=== PATIENT | female | born 1960 | race Caucasian/White ===

== ENCOUNTER 2020-06-28 14:29 | Inpatient (IN) ==
[2020-06-28] MEDS ORDERED: CeFAZolin Syr 2,000MG/20 ML 2,000 MG/20 ML SYRINGE IVPB ONE (15:04)
[2020-06-28] MEDS ORDERED: Ringers Solution, Lactated 1,000 ML IVC SCH (15:15)
[2020-06-28] MEDS ORDERED: *HR* Propofol 200 MG/20 ML VIAL IVP ONE (16:43)
[2020-06-28] MEDS ORDERED: *HR* Rocuronium Bromide 50 MG/5 ML VIAL ONE (16:44)
[2020-06-28] MEDS ORDERED: *HR* Midazolam HCl 2 MG/2 ML VIAL ONE (16:44)
[2020-06-28] MEDS ORDERED: *HR* FentaNYL (PF) 100 MCG/2 ML VIAL ONE (16:44)
[2020-06-28] MEDS ORDERED: Lidocaine -MPF 2% 2 ML VIAL ONE ×2 (16:44→16:51)
[2020-06-28] MEDS ORDERED: Famotidine 20 MG/2 ML VIAL IVP ONE (16:49)
[2020-06-28] MEDS ORDERED: Acetaminophen IV 1,000 MG/100 ML BAG IVPB ONE (16:49)
[2020-06-28] MEDS ORDERED: Gabapentin 300 MG CAPSULE PO ONE (16:49)
[2020-06-28] MEDS ORDERED: Ondansetron 4 MG/2 ML VIAL IVP PRN ×2 (16:55→20:06)
[2020-06-28] MEDS ORDERED: *HR* HYDROmorphone PF 0.5 MG/0.5 ML SYRINGE IVP PRN (16:55)
[2020-06-28] MEDS ORDERED: Ondansetron 4 MG/2 ML VIAL ONE (17:58)
[2020-06-28] MEDS ORDERED: Dexamethasone 4 MG/ML VIAL ONE (17:58)
[2020-06-28] MEDS ORDERED: *HR* PHENYLEPHRINE 1,000 MCG/10 ML SYRINGE IVP ONE (18:11)
[2020-06-28] MEDS ORDERED: Sugammadex Sodium 200 MG/2 ML VIAL IV ONE (18:24)
[2020-06-28] MEDS ORDERED: *HR* Nalbuphine 10 MG/ML AMPUL ONE (18:33)
[2020-06-28] MEDS ORDERED: *HR* Labetalol 20 MG/4 ML SYRINGE IVP ONE (19:04)
[2020-06-28] MEDS: *HR* Labetalol 20 MG/4 ML SYRINGE IVP PRN ×2 (19:05→19:20)
[2020-06-28] MEDS ORDERED: Naloxone 0.4 MG/ML INJ IVP PRN (20:06)
[2020-06-28] MEDS: Gabapentin 300 MG CAPSULE PO SCH (20:26)
[2020-06-28] MEDS: Sennosides/Docusate Sodium TABLET PO SCH (20:26)
[2020-06-28] MEDS: *HR* Heparin 5,000 UNIT/ML VIAL SQ SCH (20:26)
[2020-06-28] MEDS: *HR* HYDROcodone/Acet 5/325 mg TABLET PO PRN (20:26)
[2020-06-28] MEDS: 0.9 % Sodium Chloride 1,000 ML IVC SCH (20:26)
[2020-06-28] MEDS: Famotidine 20 MG TABLET PO SCH (20:26)
[2020-06-28] MEDS: Ketorolac 15 MG/ML VIAL IVP SCH (23:52)
[2020-06-28] MEDS: Ipratropium/Albuterol Neb 3 ML IH SCH (23:53)
[2020-06-29] MEDS: Ipratropium/Albuterol Neb 3 ML IH SCH ×7 (00:01→23:36)
[2020-06-29] MEDS: *HR* HYDROcodone/Acet 5/325 mg TABLET PO PRN ×4 (03:30→20:03)
[2020-06-29 04:46] LABS: Hemoglobin 13.3 g/dL (11.5-15.4); Mean Corpuscular HGB Conc 32.4 g/dL (31.6-35.5); Mean Corpuscular Hemoglobin 31.1 pg (28.0-33.3); Mean Platelet Volume 11.1 fL (9.4-12.4); Platelet Count 160 K/mcL (140-400); Red Blood Count 4.27 M/mcL (3.82-4.97); Red Cell Distribution Width 11.6 % (11.5-14.5); White Blood Count 9.8 K/mcL (4.3-11.1)
[2020-06-29 05:08] LABS: % Iron Saturation 11 % (15-50); BUN/Creatinine Ratio 16 (6-26); Blood Urea Nitrogen 12 mg/dL (6-20); Calcium 8.5 mg/dL (8.6-10.3); Carbon Dioxide 29 mEq/L (23-29); Chloride 104 mEq/L (98-107); Glucose 149 mg/dL (70-105); Iron 32 mcg/dL (50-170); Magnesium 1.7 mg/dL (1.6-2.6); Osmolality,Calculated 289 (280-300); Sodium 138 mEq/L (136-145); Transferrin 211 mg/dL (203-362); eGFR For African Americans > 60 (> 60); eGFR For Non-African Americans > 60 (> 60)
[2020-06-29] MEDS: *HR* Heparin 5,000 UNIT/ML VIAL SQ SCH ×3 (05:41→20:03)
[2020-06-29] MEDS: Ketorolac 15 MG/ML VIAL IVP SCH ×4 (05:42→23:15)
[2020-06-29] MEDS: Sennosides/Docusate Sodium TABLET PO SCH ×2 (08:17→20:03)
[2020-06-29] MEDS: Gabapentin 300 MG CAPSULE PO SCH ×3 (08:17→20:03)
[2020-06-29] MEDS: 0.9 % Sodium Chloride 1,000 ML IVC SCH (08:17)
[2020-06-29] MEDS: Famotidine 20 MG TABLET PO SCH ×2 (08:17→20:03)
[2020-06-29] MEDS ORDERED: Iron Sucrose Complex 400 MG in 0.9 % Sodium Chloride 250 ML IVPB ONE (09:01)
[2020-06-30] MEDS: Ipratropium/Albuterol Neb 3 ML IH SCH ×3 (03:33→11:42)
[2020-06-30] MEDS: Ketorolac 15 MG/ML VIAL IVP SCH (05:17)
[2020-06-30] MEDS: *HR* Heparin 5,000 UNIT/ML VIAL SQ SCH (05:17)
[2020-06-30] MEDS: Sennosides/Docusate Sodium TABLET PO SCH (07:49)
[2020-06-30] MEDS: Famotidine 20 MG TABLET PO SCH (07:49)
[2020-06-30] MEDS: Gabapentin 300 MG CAPSULE PO SCH (07:49)
[2020-06-30] MEDS ORDERED: ALBUTEROL SULFATE IH PRN (11:46)
[2020-06-30 11:47] VITALS: BP 138/87
[2020-06-30] MEDS ORDERED: NON-FORMULARY MEDICATION 1 EACH EACH (Loratadine [Claritin] 10 MG) PO SCH (21:00)
[2020-06-30] MEDS ORDERED: NON-FORMULARY MEDICATION 1 EACH EACH (Propranolol Hcl 40 MG) PO SCH (21:00)
[2020-06-30] MEDS ORDERED: ZOLPIDEM TARTRATE 12.5 MG PO SCH (21:00)
== END 2020-06-30 13:24 | disposition home or self-care (01) | DRG 164 ==
LOC: SAMDAY 14:29 → 2NNU 21:29
PROVIDERS: ADMIT Thoracic Surgery (Cardiothoracic Vascular Surgery); ATTEND Thoracic Surgery (Cardiothoracic Vascular Surgery)